=== PATIENT | male | born 1950 | race Caucasian/White ===

== ENCOUNTER → 2017-07-02 | Outpatient (CLI) | payer MEDICARE ==
--- NOTE | 2017-07-03 09:32 | RAD ---
EXAM DESCRIPTION: Pelvis CLINICAL HISTORY: 66 years Male, HIP PAIN COMPARISON: None. FINDINGS: No displaced pelvic fracture or dislocation is identified. The hip and sacroiliac joint spaces are well-maintained. The pubic symphysis is anatomically aligned. There are a few pelvic phleboliths, but the soft tissues are otherwise unremarkable. There is probable degenerative disc disease at several levels in the lower lumbar spine. IMPRESSION: Degenerative changes in the lower lumbar spine, otherwise unremarkable exam. Electronically signed by: Pop Tejada MD 07/03/2017 9:31 AM CDT
--- NOTE | 2017-07-03 09:34 | RAD ---
EXAM DESCRIPTION: Knee,Right Complete CLINICAL HISTORY: 66 years Male, KNEE PAIN COMPARISON: None. FINDINGS: 4 views of the right knee show no acute fracture or malalignment. Is a tiny right knee joint effusion. Mild to moderate degenerative changes are noted in the lateral compartment including joint space narrowing and marginal osteophyte formation. Tiny osteophytes are noted in the patellofemoral compartment. The soft tissues are unremarkable. 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 Electronically signed by: Pop Tejada MD 07/03/2017 9:32 AM CDT
== END | disposition home or self-care (01) ==
LOC: RAD 08:46
PROVIDERS: ATTEND Orthopaedic Surgery
DX: M25.561 Pain in right knee (principal); M25.551 Pain in right hip